=== PATIENT | female | born 1940 | race Caucasian/White ===

== ENCOUNTER 2017-02-06 14:44 | Outpatient (CLI) | payer MEDICARE, OTHER | END 2017-02-06 14:45 | LOC: CARD 14:44 | PROVIDERS: ATTEND Internal Medicine Cardiovascular Disease | DX: I25.10 Atherosclerotic heart disease of native coronary artery without angina pectoris (principal) | CPT/HCPCS: G0463 ==

== ENCOUNTER 2018-02-26 14:49 | Outpatient (CLI) | payer MEDICARE, OTHER | END 2018-02-26 14:50 | LOC: CARD 14:49 | PROVIDERS: ATTEND Internal Medicine Cardiovascular Disease | DX: I25.10 Atherosclerotic heart disease of native coronary artery without angina pectoris (principal); E78.5 Hyperlipidemia, unspecified; R60.9 Edema, unspecified | CPT/HCPCS: G0463 ==